=== PATIENT | female | born 1935 | race Caucasian/White ===

== ENCOUNTER 2019-04-08 14:41 | Inpatient (IN) | payer OTHER, MEDICAID, MEDICARE ==
[2019-04-08 18:50] LABS: ADD MAN DIFF? NO
[2019-04-08] MEDS: ONDANSETRON 4 MG INJ IV (18:53)
[2019-04-08] MEDS: morphine 4 MG/ML VIAL IV (18:53)
[2019-04-08 19:02] LABS: BASOPHILS % 0.4 % (0.0-2.0); EOSINOPHILS % 0.5 % (0.0-7.0); HEMATOCRIT 36.5 % (37.0-47.0); HEMOGLOBIN 11.9 g/dl (12.0-16.0); LYMPHOCYTES # 1.7 10^3/ul (0.8-2.9); LYMPHOCYTES % 22.6 % (15.0-51.0); MEAN CORPUSCULAR HEMOGLOBIN 27.9 pg (29.0-33.0); MEAN CORPUSCULAR HGB CONC 32.6 g/dl (32.0-37.0); MEAN CORPUSCULAR VOLUME 85.5 fl (82.0-101.0); MEAN PLATELET VOLUME 10.2 fl (7.4-10.4); MONOCYTE # 1.1 10^3/ul (0.3-0.9); MONOCYTES % 14.2 % (0.0-11.0); NEUTROPHIL # 4.6 10^3/ul (1.6-7.5); NEUTROPHILS % 61.9 % (39.0-77.0); PLATELET COUNT 225 10^3/UL (140-415); RED BLOOD COUNT 4.27 10^6/ul (4.20-5.40); RED CELL DISTRIBUTION WIDTH 14.9 % (11.5-14.5)
[2019-04-08 19:02] LABS: WHITE BLOOD COUNT 7.4 10^3/ul (4.8-10.8)
[2019-04-08 19:19] LABS: ANION GAP 9 (5-13); BLOOD UREA NITROGEN 29 mg/dl (7-20); CALCIUM 9.1 mg/dl (8.4-10.2); CARBON DIOXIDE 26 mmol/L (21-31); CHLORIDE 98 mmol/L (97-110); GLUCOSE 112 mg/dl (70-220); POTASSIUM 4.2 mmol/L (3.5-5.1); SODIUM 133 mmol/L (135-144)
[2019-04-08 19:21] LABS: INR 1.01; PROTIME 13.4 Sec (11.9-14.9)
[2019-04-08 19:22] LABS: PARTIAL THROMBOPLASTIN TIME 28.6 Sec (23.0-35.0)
[2019-04-08 19:30] LABS: TROPONIN-I < 0.012 ng/ml (0.000-0.120)
[2019-04-08] MEDS: APIXABAN 5 MG TABLET PO (20:49)
[2019-04-08] MEDS ORDERED: ONDANSETRON 4 MG INJ IV (21:00)
[2019-04-08] MEDS ORDERED: ACETAMINOPHEN 325 MG TAB PO (21:00)
[2019-04-09 05:58] LABS: ADD MAN DIFF? NO
[2019-04-09 06:10] LABS: WHITE BLOOD COUNT 5.6 10^3/ul (4.8-10.8)
[2019-04-09 06:10] LABS: BASOPHILS % 0.7 % (0.0-2.0); EOSINOPHILS # 0.1 10^3/ul (0.0-0.5); EOSINOPHILS % 1.3 % (0.0-7.0); HEMATOCRIT 33.7 % (37.0-47.0); HEMOGLOBIN 10.7 g/dl (12.0-16.0); LYMPHOCYTES # 1.6 10^3/ul (0.8-2.9); LYMPHOCYTES % 29.2 % (15.0-51.0); MEAN CORPUSCULAR HEMOGLOBIN 27.6 pg (29.0-33.0); MEAN CORPUSCULAR HGB CONC 31.8 g/dl (32.0-37.0); MEAN CORPUSCULAR VOLUME 86.9 fl (82.0-101.0); MEAN PLATELET VOLUME 9.8 fl (7.4-10.4); MONOCYTE # 0.8 10^3/ul (0.3-0.9); MONOCYTES % 13.8 % (0.0-11.0); NEUTROPHILS % 54.3 % (39.0-77.0); PLATELET COUNT 214 10^3/UL (140-415); RED BLOOD COUNT 3.88 10^6/ul (4.20-5.40); RED CELL DISTRIBUTION WIDTH 14.7 % (11.5-14.5)
[2019-04-09 06:39] LABS: ALANINE AMINOTRANSFERASE 19 IU/L (13-69); ALKALINE PHOSPHATASE 100 IU/L (42-121); ANION GAP 7 (5-13); ASPARTATE AMINO TRANSFERASE 23 IU/L (15-46); BILIRUBIN,INDIRECT 0.9 mg/dl (0-1.1); BILIRUBIN,TOTAL 0.9 mg/dl (0.2-1.3); BLOOD UREA NITROGEN 29 mg/dl (7-20); CALCIUM 8.7 mg/dl (8.4-10.2); CARBON DIOXIDE 27 mmol/L (21-31); CHLORIDE 100 mmol/L (97-110); CREATININE 0.88 mg/dl (0.44-1.00); GLUCOSE 111 mg/dl (70-220); SODIUM 134 mmol/L (135-144); TOTAL PROTEIN 6.3 g/dl (6.1-8.1)
[2019-04-09] MEDS: APIXABAN 5 MG TABLET PO ×2 (08:13→21:14)
[2019-04-09] MEDS ORDERED: hydrALAzine 20 MG INJ IV (14:30)
[2019-04-10] MEDS: APIXABAN 5 MG TABLET PO ×2 (08:13→21:13)
[2019-04-11] MEDS: APIXABAN 5 MG TABLET PO ×2 (08:25→20:04)
[2019-04-11] MEDS: ACETAMINOPHEN 500 MG TAB PO (15:21)
[2019-04-16] MEDS ORDERED: APIXABAN 5 MG TABLET PO ×2 (09:00)
== END 2019-04-11 21:16 | disposition home or self-care (01) | DRG 301 ==
LOC: E/R 14:41 → PP2 20:32
DX: I82.4Z2 Acute embolism and thrombosis of unspecified deep veins of left distal lower extremity (principal); I10 Essential (primary) hypertension
CPT/HCPCS: 36415; 73562; 80048; 80053; 84484; 85025; 85610; 85730; 93005; 93971; 96374; 96375; 99285-25